=== PATIENT | male | born 1975 ===

== ENCOUNTER 2021-03-02 01:47 | Inpatient (IN) | payer OTHER, SELFPAY ==
--- NOTE | ~2021-03-02 | XR_ITS ---
EXAMINATION: XR abdomen/kub 1V INDICATION: Ileus versus small bowel obstruction TECHNIQUE: Supine views of the abdomen were obtained on 2 radiographs. COMPARISON: CT from yesterday FINDINGS: Small bowel loops in the midabdomen are upper limits of normal in caliber. Gas and stool ar e present in the colon. No free intraperitoneal gas is identified. IMPRESSION: 1. Small bowel upper limits of normal in caliber without dilated bowel identified. Reviewed, dictated and finalized at location A. IMPRESSION: 1. Small bowel upper limits of normal in caliber without dilated bowel identifi ed.
--- NOTE | ~2021-03-02 | CT_ITS ---
EXAMINATION: CT abdomen pelvis w con EXAM DATE: 03/02/2021 04:06 INDICATION: left lower abdominal pain. TECHNIQUE: Spiral CT of the abdomen and pelvis was performed following intravenous injection of 100 m L Omnipaque 350. Axial, coronal and sagittal images of the abdomen and pelvis were reviewed. The do se-length product (DLP) for this examination was 717.25 mGy-cm. The exposure was tailored according to patient size (auto mA exposure control), and iterative reconstruction (ASIR) was used as additiona l dose reduction technique. Comparison is made to prior examination from 01/04/2009. FINDINGS: There is homogeneously enhancing right liver lobe lesion, a flash filling hemangioma which is unchanged compared to prior study, measuring 1.8 cm. There is hepatic steatosis without suspiciou s focal lesion identified. Spleen, adrenal glands, pancreas are unremarkable. Gallbladder is unremar kable. No biliary obstruction. Left kidney not identified, could be congenital given that there is asymmetry in the seminal vesicles with left being atrophic, but correlate with any surgical history. No right-sided hydronephrosis. The prostate is unremarkable. The bladder is unremarkable. There is no retroperitoneal or pelvic lymphadenopathy. There is mild scattered arteriosclerotic disease. Sm all umbilical fat-containing hernia. The appendix is normal. There is mild edema, inflammation of the terminal ileum, nonspecific termina l ileitis with differential diagnosis including infectious etiology and inflammatory bowel disease/Cr ohn's disease. Evidence of mild stasis proximal to this, mild dilation. Only small amount of colonic stool. No free intraperitoneal gas. The heart is normal in size. There are no pericardial or pl eural effusions. The lung bases are unremarkable. There are no osteoblastic or osteolytic lesions i dentified. IMPRESSION: 1. Terminal ileitis, consider infectious etiology or Crohn's disease. Mild ileus or low-grade partial obstruction proximal to this. 2. Flash filling hemangioma. 3. Hepatic steatosis. 4. Absent left kidney. Reviewed, dictated and finalized at location B. IMPRESSION: 1. Terminal ileitis, consider infectious etiology or Crohn's disease. Mild ileu s or low-grade partial obstruction proximal to this. 2. Flash filling hemangioma. 3. Hepatic steatosis. 4. Absent left kidney.
[2021-03-02 01:51] VITALS: BP 138/84; PULSE 75; RESP 18; TEMP 36.7; O2SAT 99
--- NOTE | 2021-03-02 02:16 | ED.ABDPAIN ---
HPI - Abdominal Pain General Chief Complaint: Abdominal Pain Stated Complaint: abd pain Time Seen by Provider: 03/02/21 02:00 Source: patient Mode of arrival: ambulatory Limitations: no limitations History of Present Illness HPI narrative: This is a 45 year old male who presents for evaluation of abdominal pain. Patient developed mid abdominal pain that started at 8 pm tonight. He states his pain would wax and wane and it gradually occurred more frequently through the night. He constantly had urger to have bowel movement tonight with little output. His pain has radiate to left lower abdomen and his left back. He developed nausea and vomiting just prior to arrival so he came to ER. He has not taken anything pain. HE denies dysuria, hematuria, fever or chills. He rates his pain 11/12. Related Data Allergies Allergy/AdvReac Type Severity Reaction Status Date / Time No Known Drug Allergies Allergy Unknown Other Verified 03/02/21 03:05 Review of Systems Review of Systems: All systems reviewed & are unremarkable except as noted in HPI and below PMFSH Past Medical History Medical History (Updated 03/02/21 @ 06:43 by Gill Rao MD) Patient denies medical problems Surgical History Surgical History (Updated 03/02/21 @ 02:17 by Gill Rao MD) History of tonsillectomy Social History Social History (Updated 03/02/21 @ 02:18 by Gill Rao MD) Smoking status: Current every day smoker Alcohol intake: current Exam Const: General: no acute distress and alert Orientation/consciousness: patient oriented x3 Eyes: EOM: EOMs intact bilaterally Resp: Effort & Inspection: normal respiratory effort and no retractions Auscultation: clear to auscultation bilaterally Cardio: Rate: regular rate Rhythm: regular rhythm Heart sounds: no murmurs GI: GI Palp: Yes Soft to palpation, Yes Tenderness to palpation present (GI) (LLQ), No Guarding due to palpation present (GI) and No Rigid due to palpation Auscultation: normal bowel sounds : General: Yes CVA tenderness on the left Skin: General skin exam: normal color Rashes: no rashes Neuro: General: patient oriented x3, moves all extremities and CN's II-XI intact bilaterally Psych: Mental Status: mental status grossly normal Affect: normal affect Course Reevaluation(s) Reevaluation #1: I Discussed with patient CT findings. HE denies history of diarrhea or inflammatory bowel disease. He reports he normally has normal bowel movements. I Spoke with Dr. Morfin who agrees to consult. Date: 03/02/21 Time: 06:30 Consultations Consultation #1: I spoke with Dr. Martinez who accepts patient to hospitalist service. she request surgery consult. Date: 03/02/21 Time: 06:42 Consultation #2: I Discussed case with DR. Mckenna. HE agrees patient needs GI consults. Date: 03/02/21 Time: 06:53 Vital Signs Vital signs: Vital Signs Temperature 98.0 F 03/02/21 01:51 Pulse Rate 75 03/02/21 01:51 Respiratory Rate 18 03/02/21 01:51 Blood Pressure 138/84 03/02/21 01:51 Pulse Oximetry 99 03/02/21 01:51 Temperature 98.1 F 03/02/21 05:28 Pulse Rate 81 03/02/21 05:28 Respiratory Rate 18 03/02/21 05:28 Blood Pressure 141/71 H 03/02/21 05:28 Pulse Oximetry 100 03/02/21 05:28 MDM - Abdominal Pain Lab Data Attestation: I reviewed the patient's lab results. Result diagrams: 03/02/21 02:24 03/02/21 03:08 Labs: Lab Results 03/02/21 03/02/21 03/02/21 Range/Units 02:24 02:25 03:08 WBC 15.1 H (4.5-10.0) K/mm3 RBC 5.36 (4.6-6.20) M/mm3 Hgb 17.3 (14.0-18.0) g/dL Hct 49.6 (42.0-52.0) % MCV 92.5 (80-100) fl MCH 32.3 (26-34) pg MCHC 34.9 (32-36) g/dl RDW 12.4 (11.5-14.5) % Plt Count 322 (150-375) k/mm3 MPV 10.1 (7.4-10.4) fl Immature Gran % (Auto) 0.4 (0-0.5) % Neut % (Auto) 82.3 H (45.5-73.1) % Lymph % (Auto) 11.6 L (18.3
[2021-03-02] MEDS: ONDANSETRON INJ 4 MG/2 ML VIAL IV PUSH (02:22)
[2021-03-02] MEDS: MORPHINE SULFATE (*CRX) 4 MG/ML INJ IV PUSH (02:22)
[2021-03-02] MEDS: SODIUM CHLORIDE 0.9% IV 1,000 ML 999 ML IV CONT (02:23)
[2021-03-02 02:35] LABS: Basophils Absolute Auto 0.1 K/mm3 (0.0-0.1); Basophils Percent Auto 0.3 % (0.2-1.2); Eosinophils Percent Auto 0.1 % (0-4.4); Hematocrit 49.6 % (42.0-52.0); Hemoglobin 17.3 g/dL (14.0-18.0); Immature Granulocyte Absolute 0.06 K/mm3 (0.00-0.031); Immature Granulocyte Percent A 0.4 % (0-0.5); Lymphocytes Absolute Auto 1.75 K/mm3 (0.9-3.2); Lymphocytes Percent Auto 11.6 % (18.3-44.2); Mean Corpuscular HGB Conc 34.9 g/dl (32-36); Mean Corpuscular Hemoglobin 32.3 pg (26-34); Mean Corpuscular Volume 92.5 fl (80-100); Mean Platelet Volume 10.1 fl (7.4-10.4); Monocytes Absolute Auto 0.8 K/mm3 (0.1-0.6); Monocytes Percent Auto 5.3 % (2.6-8.5); Neutrophils Absolute Auto 12.5 K/mm3 (1.3-6.7); Neutrophils Percent Auto 82.3 % (45.5-73.1); Platelet Count Result 322 k/mm3 (150-375); Red Blood Count 5.36 M/mm3 (4.6-6.20); Red Cell Distribution Width 12.4 % (11.5-14.5); White Blood Count 15.1 K/mm3 (4.5-10.0)
[2021-03-02 03:18] LABS: Add Urine Microscopic? YES; Appearance Urine Cloudy (Clear); Bilirubin Urine Negative (Negative); Blood Urine Negative (Negative); Calcium Oxalate Crystals Urine Present /hpf; Color Urine Yellow (Yellow); Glucose Urine UA Negative (Negative); Ketones Urine Negative (Negative); Leukocyte Esterase Ur Negative LEU/UL (Negative); Mucus Urine Rare /lpf; Nitrate Urine Negative (Negative); Protein Urine 2+ mg/dL (Negative); WBC Urine 0-3 /hpf
[2021-03-02 03:50] LABS: Alanine Aminotransferase 34 U/L (4-50); Albumin Level 3.8 g/dL (3.5-5.1); Alkaline Phosphatase 57 U/L (38-126); Anion Gap 6 mmol/L (8-16); Aspartate Amino Transferase 24 U/L (17-59); Bilirubin,Total 0.6 mg/dL (0.2-1.3); Blood Urea Nitrogen 19 mg/dL (9-20); Calcium 8.6 mg/dL (8.4-10.2); Carbon Dioxide 25 mmol/L (22-30); Chloride 107 mmol/L (98-107); Estimated CRCL calculation 105 ml/min; Estimated Glomerular Filt Rate > 60; Glucose 129 mg/dL (65-110); Lipase 299 U/L (23-300); Potassium 4.4 mmol/L (3.4-5.0); Sodium 138 mmol/L (137-145)
[2021-03-02 05:28] VITALS: BP 141/71; PULSE 81; RESP 18; TEMP 36.7; O2SAT 100
[2021-03-02 06:54] VITALS: BP 100/59; PULSE 81; RESP 18; O2SAT 100
[2021-03-02 07:46] VITALS: BMI 27.8
[2021-03-02 08:33] VITALS: BP 103/61; PULSE 65; RESP 18; TEMP 36.1; O2SAT 97
--- NOTE | 2021-03-02 08:37 | ADMGEN ---
This patient, Pratik Duque, was admitted to 3 [facility] Surg Room 316-01. Patient/family oriented to hospital policies and general routines including ID bracelet, bed and alarms, visiting hours, pain management, procedures, bathroom and other care routines, personal items, smoking policy, room service/diet, and visiting hours. Pt has his phone and wallet at bedside. He will keep it with him. Information on how to activate the Rapid Response Team has been discussed. Patient/Family are encouraged to report perceived risks to care and to ask questions if they do not understand what they are told or what they should do.
[2021-03-02] MEDS: SODIUM CHLORIDE 0.9% IV 1,000 ML 125 ML IV CONT ×2 (10:07→18:48)
--- NOTE | 2021-03-02 12:35 | PM.CNGS ---
Assessment and Plan Assessment and plan (1) Partial small bowel obstruction: Code(s): K56.600 - Partial intestinal obstruction, unspecified as to cause Status: Acute Assessment and Plan: CT scan reviewed and discussed in detail with the patient. He had evidence of a partial small bowel obstruction secondary to the terminal ileitis. This seems to be resolving. Abdominal exam is benign. No longer having any abdominal pain or nausea. Continue treating this conservatively with medical management of the terminal ileitis and monitoring. Okay to start clear liquids today from our standpoint. Await GI consultation. If he does well, his diet could slowly be advanced. We will continue to monitor with serial abdominal exams. Thank you for allowing us to see the patient in consultation and we will continue to follow along with you. (2) Ileitis, terminal: Code(s): K50.00 - Crohn's disease of small intestine without complications Status: Acute Assessment and Plan: Terminal ileitis from infectious or inflammatory etiology. No known hx of IBD. GI has been consulted. Currently on broad-spectrum IV antibiotics. WBC 15,000 on admission. Repeat labs tomorrow. Will await GI recommendations. (3) Congenital absence of left kidney: Code(s): Q60.0 - Renal agenesis, unilateral Status: Acute (4) Hepatic steatosis: Code(s): K76.0 - Fatty (change of) liver, not elsewhere classified Status: Acute Assessment and Plan: Incidentally noted on CT. Discussed with patient. F/u with PCP after discharge. Additional Plan I have discussed the patient's case and plan of care with Dr. Mckenna. History of Present Illness Consult details Consult date: 03/02/21 Reason for consult: other (Partial small bowel obstruction) Requesting physician: Gill Rao MD Narrative: This is a 45-year-old male who presented to the ER with complaints of abdominal pain and vomiting. He reports that he had a very large quantity of almonds yesterday afternoon around 3:00 pm after not eating any meals all day. Later in the evening, he ate dinner, which was a pork chop and potatoes around 8:00 pm. Shortly after eating dinner, he began to have generalized abdominal pain. This continued to gradually worsen. He then developed nausea and had multiple episodes of vomiting. No hematemesis or coffee-ground emesis. He reports that his bowel also changed, when he had a normal BM in the morning and when the pain started, he had a few very small liquid stools. Due to the unrelenting pain and vomiting, he came into the ER through the night for evaluation. CT scand of the abdomen/pelvis showed terminal ileitis with a partial small bowel obstruction. Incidentally noted also was an absent left kidney, hepatic steatosis, and likely a hemangioma on the right lobe of the liver. He reports that his absent left kidney is congenital. The patient was admitted to the Hospitalist service. We were consulted for the partial small bowel obstruction. He did not have an NG tube placed. His nausea has resolved with no further episodes of vomiting since being admitted. He is now seen on the medical floor. He feels much better with all of his symptoms resolved. He denies any abdominal pain, nausea, or vomiting. No other complaints at this time. He denies previous abdominal surgery. Denies a personal or family history of inflammatory bowel disease. No recent weight loss or changes in his bowel habits. No recent diarrhea, fever, or chills. No close contacts with similar symptoms. He had a colonoscopy about 10 years ago that was reportedly normal. This was done due to having a family history of colon cancer. Review of Systems Review of Systems: All systems reviewed & are unremarkable except as noted in HPI and below Constitutional: Constitutional: Reports as per HPI, Denies chills, Denies fatigue and Denies fever(s) ENT: Reports system reviewed and no additional complaints, exce
[2021-03-02 14:00] VITALS: BP 109/54; PULSE 73; RESP 14; TEMP 36.2; O2SAT 97
--- NOTE | 2021-03-02 14:11 | PM.IMHP ---
H&P: HPI History of Present Illness Date/Time: 03/02/21 14:11 Chief Complaint: abdominal pain Narrative: Patient is a 45-year-old gentleman with no significant past medical history presenting with abdominal pain since yesterday. Around 8:00 p.m. last night, he started feeling an acute onset pain in the low left side, in the middle of his abdomen. Gates like twisting, and lasted for several hours until he came to the hospital. Over this course, he had couple loose bowel movements, and a few episodes of vomiting, bilious fluid. No blood in vomit or stool. Never happened to him before. No fevers or chills. Nobody around him had the symptoms. Past medical history: No chronic medical problems Allergies: Not aware of any allergies Medications: None daily Family history: Father had leukemia, sister had colon cancer diagnosed at age 44 Social history: No drugs alcohol or tobacco Surgeries: No major surgeries ER course: Vitals: Unremarkable new Labs: White blood cells 15, UA negative CT: Showing terminal ileitis, flash filling hemangioma, hepatic steatosis, absent left kidney General surgery and GI service consulted from the emergency room Review of Systems Review of Systems: All systems reviewed & are unremarkable except as noted in HPI and below PMFSH Past Medical History Medical History Congenital absence of left kidney Surgical History Surgical History History of tonsillectomy Family History Family History Sibling Colon cancer Father Leukemia Social History Social History Smoking status: Current every day smoker Tobacco type: e-cigarettes/vaping Alcohol intake: current Drinks per week: 5 Substance use: never Spiritual care concerns: No Meds Home Medications and Allergies Home Medications Medication Instructions Recorded Confirmed Type No Home Medications 03/02/21 03/02/21 History Allergies Allergy/AdvReac Type Severity Reaction Status Date / Time No Known Drug Allergies Allergy Unknown Other Verified 03/02/21 03:05 Vital Signs Vital Signs - 24 hr 03/02/21 01:51 03/02/21 05:28 03/02/21 06:54 Temperature 98.0 F 98.1 F Pulse Rate 75 81 81 Respiratory Rate 18 18 18 Blood Pressure 138/84 141/71 H 100/59 L Pulse Oximetry 99 100 100 03/02/21 08:33 03/02/21 14:00 Temperature 97.0 F L 97.1 F L Pulse Rate 65 73 Respiratory Rate 18 14 Blood Pressure 103/61 109/54 L Pulse Oximetry 97 97 Exam Const: General: no acute distress Neck: Neck: no JVD Resp: Effort & Inspection: normal respiratory effort Auscultation: clear to auscultation bilaterally Cardio: Rate: regular rate Rhythm: regular rhythm GI: GI Palp: Yes Soft to palpation and No Tenderness to palpation present (GI) H&P: Results Labs Labs: Short CBC 03/02/21 Range/Units 02:24 WBC 15.1 H (4.5-10.0) K/mm3 Hgb 17.3 (14.0-18.0) g/dL Hct 49.6 (42.0-52.0) % Plt Count 322 (150-375) k/mm3 BMP 03/02/21 03:08 Sodium 138 Potassium 4.4 Chloride 107 Carbon Dioxide 25 BUN 19 Creatinine 1.00 Glucose 129 H Calcium 8.6 Liver Function 03/02/21 Range/Units 03:08 Total Bilirubin 0.6 (0.2-1.3) mg/dL AST 24 (17-59) U/L ALT 34 (4-50) U/L Alkaline Phosphatase 57 (38-126) U/L Albumin 3.8 (3.5-5.1) g/dL Urine 03/02/21 Range/Units 02:25 Urine Color Yellow (Yellow) Urine Appearance Cloudy H (Clear) Urine pH 6.0 (5.0-9.0) Ur Specific [place] 1.030 (1.001-1.035) Urine Protein 2+ H (Negative) mg/dL Urine Glucose (UA) Negative (Negative) mg/dL Assessment and Plan Assessment and plan (1) Ileitis, terminal: Code(s): K50.00 - Crohn's disease of small intestine without complications
--- NOTE | 2021-03-02 14:27 | PC.NURSE ---
On 03/02/21, the student, Reema GARCIA [facility], provided care and completed [employer] documentation on this patient. I have reviewed the student's documentation and agree with the findings.
--- NOTE | 2021-03-02 17:35 | WPDGICN ---
Assessment and Plan Assessment and plan (1) Ileitis, terminal: Code(s): K50.00 - Crohn's disease of small intestine without complications Status: Acute Assessment and Plan: new episode, denies previous similar episodes, normally does not have diarrhea or abdominal pain last colonoscopy 2008 normal and for family h/o CRC will do colonoscopy tomorrow, probably infectious or food poising but also need to assess if IBD (denies chronic symptoms though) he is doing much better now will get inflammatory markers in am (2) Partial small bowel obstruction: Code(s): K56.600 - Partial intestinal obstruction, unspecified as to cause Status: Acute Assessment and Plan: clinically much better surgery on board (3) Nausea and vomiting in adult: Code(s): R11.2 - Nausea with vomiting, unspecified Status: Acute Assessment and Plan: resolved (4) Congenital absence of left kidney: Code(s): Q60.0 - Renal agenesis, unilateral Status: Acute (5) Hepatic steatosis: Code(s): K76.0 - Fatty (change of) liver, not elsewhere classified Status: Acute (6) Leukocytosis: Code(s): D72.829 - Elevated white blood cell count, unspecified Status: Acute Assessment and Plan: on admission, started on antibiotics repeat in am GI Consult Note Consult date/time: 03/02/21 17:35 Reason for consult: n/v, possible ileitis, partial SBO HPI: Pratik Duque is a 45 year old male here with new onset of pain after he ate large quantity of almonds yesterday afternoon (he did not drink water and skip meals). Pain worsened last evening and more severe, also had nausea and vomiting, also had small amount of liquid stools which is unusual for him. CT scan of the abdomen/pelvis reviewed and showed terminal ileitis with a partial small bowel obstruction. Incidentally noted also was an absent left kidney, hepatic steatosis, and likely a hemangioma on the right lobe of the liver. He reports that his absent left kidney is congenital. Since admission his pain is resolved and doing much better, tolerated liquid diet. He had colonoscopy 2008 that was normal because sister had colon cancer. Review of Systems Constitutional: Constitutional: Denies chills Eyes: Eyes: Reports no additional eye complaints ENT: Reports Normal hearing present Cardiovascular: Cardiovascular: Denies chest pain Respiratory: Respiratory: Denies dyspnea Gastrointestinal: Gastrointestinal: Reports abdominal pain, Reports nausea and Reports vomiting Genitourinary: Genitourinary: Denies dysuria Musculoskeletal: Musculoskeletal: Denies neck pain Integumentary/Breasts: Skin/Breast: Denies dry skin Neurologic: Denies headache(s) Psychiatric: Psychiatric: Reports no additional psychiatric complaints [facility] Past Medical History Medical History (Updated 03/02/21 @ 17:43 by Herb Morfin MD) Congenital absence of left kidney Leukocytosis Nausea and vomiting in adult Surgical History Surgical History History of tonsillectomy Family History Family History Sibling Colon cancer Father Leukemia Social History Social History Smoking status: Current every day smoker Tobacco type: e-cigarettes/vaping Alcohol intake: current Drinks per week: 5 Substance use: never Spiritual care concerns: No Meds Home Medications and Allergies Home Medications Medication Instructions Recorded Confirmed Type No Home Medications 03/02/21 03/02/21 History Allergies Allergy/AdvReac Type Severity Reaction Status Date / Time No Known Drug Allergies Allergy Unknown Other Verified 03/02/21 03:05 Vital Signs Vital Signs - 24 hr 03/02/21 01:51 03/02/21 05:28 03/02/21 06:54 Temperature 98.0 F 98.1 F Pulse Rate 7
[2021-03-02] MEDS: BISACODYL 5 MG TABLET EC 20 MG PO (18:22)
[2021-03-02 22:00] VITALS: BP 104/63; PULSE 75; RESP 18; TEMP 35.9; O2SAT 100
[2021-03-02] MEDS: polyethylene glycoL 3350 238 GM BOTTLE PO (23:23)
[2021-03-03] VITALS (8 sets, daily range): BP systolic 92–112; BP diastolic 46–70; PULSE 66–84; RESP 14–19; TEMP 35.8–36.6; O2SAT 95–100
[2021-03-03] MEDS: SODIUM CHLORIDE 0.9% IV 1,000 ML 125 ML IV CONT ×2 (03:45→11:18)
[2021-03-03] MEDS: MAGNESIUM CITRATE 300 ML BTL PO (03:45)
[2021-03-03 06:29] LABS: Basophils Percent Auto 0.4 % (0.2-1.2); Eosinophils Absolute Auto 0.1 K/mm3 (0-0.3); Eosinophils Percent Auto 1.4 % (0-4.4); Hematocrit 44.5 % (42.0-52.0); Hemoglobin 15.3 g/dL (14.0-18.0); Immature Granulocyte Absolute 0.02 K/mm3 (0.00-0.031); Immature Granulocyte Percent A 0.3 % (0-0.5); Lymphocytes Absolute Auto 2.55 K/mm3 (0.9-3.2); Lymphocytes Percent Auto 34.6 % (18.3-44.2); Mean Corpuscular HGB Conc 34.4 g/dl (32-36); Mean Corpuscular Hemoglobin 32.4 pg (26-34); Mean Corpuscular Volume 94.3 fl (80-100); Mean Platelet Volume 9.8 fl (7.4-10.4); Monocytes Absolute Auto 0.6 K/mm3 (0.1-0.6); Neutrophils Absolute Auto 4.1 K/mm3 (1.3-6.7); Neutrophils Percent Auto 55.3 % (45.5-73.1); Platelet Count Result 240 k/mm3 (150-375); Red Blood Count 4.72 M/mm3 (4.6-6.20); Red Cell Distribution Width 12.4 % (11.5-14.5); White Blood Count 7.4 K/mm3 (4.5-10.0)
[2021-03-03 07:01] LABS: Alanine Aminotransferase 29 U/L (4-50); Albumin Level 3.6 g/dL (3.5-5.1); Alkaline Phosphatase 52 U/L (38-126); Anion Gap 10 mmol/L (8-16); Aspartate Amino Transferase 21 U/L (17-59); Bilirubin,Total 0.7 mg/dL (0.2-1.3); Blood Urea Nitrogen 8 mg/dL (9-20); CRP < 0.5 mg/dL (<1.0); Calcium 8.5 mg/dL (8.4-10.2); Carbon Dioxide 19 mmol/L (22-30); Chloride 111 mmol/L (98-107); Estimated CRCL calculation 90 ml/min; Estimated Glomerular Filt Rate > 60; Glucose 107 mg/dL (65-110); Magnesium 2.1 mg/dL (1.6-2.3); Phosphorus 3.6 mg/dL (2.5-4.5); Sodium 140 mmol/L (137-145)
[2021-03-03 07:05] LABS: Erythrocyte Sedimentation Rate 6 mm/hr (0-20)
[2021-03-03 07:20] LABS: Hemoglobin A1C 5.4 % (<5.7)
--- NOTE | 2021-03-03 08:32 | PM.IMPN ---
Progress Note: A&P Assessment and Plan (1) Ileitis, terminal: Code(s): K50.00 - Crohn's disease of small intestine without complications Status: Acute (2) Hepatic steatosis: Code(s): K76.0 - Fatty (change of) liver, not elsewhere classified Status: Acute Assessment and Plan: Patient is not an alcoholic, or obese will obtain A1c with morning labs (3) Congenital absence of left kidney: Code(s): Q60.0 - Renal agenesis, unilateral Status: Acute Assessment and Plan: discovered many years ago, congenital condition. (4) Partial small bowel obstruction: Code(s): K56.600 - Partial intestinal obstruction, unspecified as to cause Status: Acute Assessment and Plan: Seen by surgery, recommend conservative management, start with cold liquids and slowly advance diet (5) Hemangioma: Code(s): D18.00 - Hemangioma unspecified site Status: Acute Assessment and Plan: Patient was told many years ago that he had this, was followed with an MRI, and believed to be non growing. Will defer to GI, however less likely that this is associated with his current symptoms. Additional Plan 45-year-old male with acute onset left-sided abdominal pain for 1 day. Ileitis: Unclear etiology, some concern for IBD, GI is on consult. Discussed possibility of other etiologies, including celiac, appreciate additional GI input. Continue with Morphine pain control is seems to be working for him, and IV fluids. some concern for partial bowel obstruction on CT, however patient is continuing to have bowel movements and seen by GI, recommending conservative medical management, and starting clear liquid diets an advancing slowly which we will do. noted the patient is on Zosyn, we will continue, and can stop based on GI recommendation. Based on their evaluation, plan for colonoscopy today. Of note he had a sister who had colon cancer diagnosed at age 44, however he has no other symptoms at this, and no weight loss. Time Spent With Patient Time with patient: less than 15 minutes Subjective Date/time seen: 03/03/21 08:32 abdominal pain controlled resting comfortably in bed Review of Systems Review of Systems: All systems reviewed & are unremarkable except as noted in HPI and below Exam Const: General: no acute distress Neck: Neck: no JVD Resp: Effort & Inspection: normal respiratory effort Auscultation: clear to auscultation bilaterally Cardio: Rate: regular rate Rhythm: regular rhythm GI: Inspection: non-distended Objective Data Vital Signs Vital Signs: Vital Signs - 24 hr 03/02/21 08:33 03/02/21 14:00 03/02/21 22:00 Temperature 97.0 F L 97.1 F L 96.7 F L Pulse Rate 65 73 75 Respiratory Rate 18 14 18 Blood Pressure 103/61 109/54 L 104/63 Pulse Oximetry 97 97 100 03/03/21 06:00 Temperature 97.4 F L Pulse Rate 66 Respiratory Rate 18 Blood Pressure 92/46 L Pulse Oximetry 99 Intake/Output Intake/Output: Intake & Output 02/28/21 03/01/21 03/02/21 03/03/21 23:59 23:59 23:59 23:59 Intake Total 3450 2700 Balance 3450 2700 Meds/Results Medications: Active Medications Generic Name Dose Route Start Last Admin Trade Name Freq PRN Reason Stop Dose Admin Piperacillin/Tazobactam/Dextrose 3.375 gm in 50 mls @ 100 mls/hr 03/02/21 12:00 03/03/21 06:24 Zosyn 3.375 Gm/D5w 50ml Pm IVPB Infused Q6H BRUCE Infusion Sodium Chloride 1,000 mls @ 125 mls/hr 03/02/21 06:55 03/03/21 03:45 Normal Saline Iv IV CONT 125 mls/hr .Q8H BRUCE Administration Morphine Sulfate 4 mg 03/02/21 06:55 Morphine Sulfate (*Crx) 4 Mg/Ml Inj IV PUSH Q2H PRN Pain Rated 7-10 Ondansetron HCl 4 mg 03/02/21 06:55 Ondansetron Inj 4 Mg/2 Ml Vial IV PUSH Q4H PRN Nausea Radiology Results: ITS Impressions Abdomen/Pelvis CT 03/02/21 08:50 IMPRESSION: 1. Terminal ileitis, consider infectious etiology or Crohn's dise
[2021-03-03] MEDS: LACTATED RINGERS 1,000 ML 150 ML IV CONT ×2 (11:44→13:10)
[2021-03-03] MEDS: LACTATED RINGERS 1,000 ML 999 ML IV CONT (11:45)
--- NOTE | 2021-03-03 12:24 | PM.PNGS ---
Progress Note: A&P Assessment and Plan (1) Ileitis, terminal: Code(s): K50.00 - Crohn's disease of small intestine without complications Status: Acute Assessment and Plan: Bowel obstruction appears resolved. Will await colonoscopy results, but most likely this will be able to be medically managed. Will follow patient as needed. (2) Partial small bowel obstruction: Code(s): K56.600 - Partial intestinal obstruction, unspecified as to cause Status: Acute Subjective Subjective Date/Time Seen: 03/03/21 12:24 Interval history: Patient doing well this morning. He denies any more abdominal pain. He was able to tolerate his bowel prep last night. He is currently NPO waiting for colonoscopy today. Exam GI: Inspection: non-distended GI Palp: Yes Soft to palpation, No Tenderness to palpation present (GI), No Guarding due to palpation present (GI), No Palpable mass present and No Rebound tenderness present Percussion: Yes normal to percussion Auscultation: normal bowel sounds Objective Data Vital Signs Vital Signs: Vital Signs - 24 hr 03/02/21 14:00 03/02/21 22:00 03/03/21 06:00 Temperature 36.2 C L 35.9 C L 36.3 C L Pulse Rate 73 75 66 Respiratory Rate 14 18 18 Blood Pressure 109/54 L 104/63 92/46 L Pulse Oximetry 97 100 99 03/03/21 08:00 Temperature Pulse Rate 66 Respiratory Rate 18 Blood Pressure Pulse Oximetry 99 Intake/Output Intake/Output: Intake & Output 02/28/21 03/01/21 03/02/21 03/03/21 23:59 23:59 23:59 23:59 Intake Total 3450 3700 Balance 3450 3700 Meds/Results Medications: Active Medications Generic Name Dose Route Start Last Admin Trade Name Freq PRN Reason Stop Dose Admin Piperacillin/Tazobactam/Dextrose 3.375 gm in 50 mls @ 100 mls/hr 03/02/21 12:00 03/03/21 11:17 Zosyn 3.375 Gm/D5w 50ml Pm IVPB 100 mls/hr Q6H BRUCE Administration Sodium Chloride 1,000 mls @ 125 mls/hr 03/02/21 06:55 03/03/21 11:18 Normal Saline Iv IV CONT 125 mls/hr .Q8H BRUCE Administration Lactated Ringer's 1,000 mls @ 999 mls/hr 03/03/21 11:41 03/03/21 11:45 Lr - Lactated Ringers Iv IV CONT 03/03/21 12:41 999 mls/hr .Q1H1M STA Administration Lactated Ringer's 1,000 mls @ 150 mls/hr 03/03/21 12:05 Lr - Lactated Ringers Iv IV CONT .Q6H40M BRUCE Morphine Sulfate 4 mg 03/02/21 06:55 Morphine Sulfate (*Crx) 4 Mg/Ml Inj IV PUSH Q2H PRN Pain Rated 7-10 Ondansetron HCl 4 mg 03/02/21 06:55 Ondansetron Inj 4 Mg/2 Ml Vial IV PUSH Q4H PRN Nausea Radiology Results: ITS Impressions Abdomen/Pelvis CT 03/02/21 08:50 IMPRESSION: 1. Terminal ileitis, consider infectious etiology or Crohn's disease. Mild ileus or low-grade partial obstruction proximal to this. 2. Flash filling hemangioma. 3. Hepatic steatosis. 4. Absent left kidney. Abdomen X-Ray 03/03/21 07:06 IMPRESSION: 1. Small bowel upper limits of normal in caliber without dilated bowel identified. Labs Labs: Laboratory Results - last 24 hr 03/03/21 03/03/21 03/03/21 06:10 06:11 06:11 WBC 7.4 RBC 4.72 Hgb 15.3 Hct 44.5 MCV 94.3 MCH 32.4 MCHC 34.4 RDW 12.4 Plt Count 240 MPV 9.8 Immature Gran % (Auto) 0.3 Neut % (Auto) 55.3 Lymph % (Auto) 34.6 [place] % (Auto) 8.0 Eos % (Auto) 1.4 Baso % (Auto) 0.4 Lymph # (Auto) 2.55 [place] # (Auto) 0.6 Eos # (Auto) 0.1 Baso # (Auto) 0.0 Abs Immat Gran (auto) 0.02 Absolute Neuts (auto) 4.1 Absolute Nucleated RBC 0.0 Nucleated RBC % 0.0 ESR 6 Sodium 140 Potassium 4.0 Chloride 111 H Carbon Dioxide 19 L Anion Gap 10 BUN 8 L D Creatinine 1.00 Estim Creat Clear Calc 90 Estimated GFR > 60 Glucose 107 Hemoglobin A1c 5.4 Calcium 8.5 Phosphorus 3.6 Magnesium 2.1 Total Bilirubin 0.7 AST 21 ALT 29 Alkaline Phosphatase 52 C-Reactive Protein < 0.5 Total Protei
--- NOTE | 2021-03-03 12:45 | PC.NURSE ---
Report given to Gl lab Nanci picked up pt for colonoscopy this afternoon.
--- NOTE | 2021-03-03 12:55 | WPDANESEPPF ---
Anes - Initial Pre Proc Eval Procedure: Operation Date: 03/03/21 13:45 Proposed Procedures p Colonoscopy - Herb Morfin MD Date/Time: 03/03/21 12:55 Surgeon: Florence Matrinez MD Pre Op Diagnosis: Terminal Ileitis, Partial Small Bowel Obstruction Patient Data Age: 45 Gender: M Height: 1.83 m Weight: 93 kg Last Vital Signs Temp 36.3 C L 03/03/21 06:00 Pulse 66 03/03/21 08:00 Resp 18 03/03/21 08:00 BP 92/46 L 03/03/21 06:00 Pulse Ox 99 03/03/21 08:00 Allergies Allergy/AdvReac Type Severity Reaction Status Date / Time No Known Drug Allergies Allergy Unknown Other Verified 03/03/21 12:53 Home Medications Medication Instructions Recorded Confirmed Type No Home Medications 03/02/21 03/03/21 History Laboratory Tests 03/03/21 03/03/21 03/03/21 06:10 06:11 06:11 WBC 7.4 K/mm3 K/mm3 (4.5-10.0) RBC 4.72 M/mm3 M/mm3 (4.6-6.20) Hgb 15.3 g/dL g/dL (14.0-18.0) Hct 44.5 % % (42.0-52.0) MCV 94.3 fl fl (80-100) MCH 32.4 pg pg (26-34) MCHC 34.4 g/dl g/dl (32-36) RDW 12.4 % % (11.5-14.5) Plt Count 240 k/mm3 k/mm3 (150-375) MPV 9.8 fl fl (7.4-10.4) Immature Gran % (Auto) 0.3 % % (0-0.5) Neut % (Auto) 55.3 % % (45.5-73.1) Lymph % (Auto) 34.6 % % (18.3-44.2) [place] % (Auto) 8.0 % % (2.6-8.5) Eos % (Auto) 1.4 % % (0-4.4) Baso % (Auto) 0.4 % % (0.2-1.2) Lymph # (Auto) 2.55 K/mm3 K/mm3 (0.9-3.2) [place] # (Auto) 0.6 K/mm3 K/mm3 (0.1-0.6) Eos # (Auto) 0.1 K/mm3 K/mm3 (0-0.3) Baso # (Auto) 0.0 K/mm3 K/mm3 (0.0-0.1) Abs Immat Gran (auto) 0.02 K/mm3 K/mm3 (0.00-0.031) Absolute Neuts (auto) 4.1 K/mm3 K/mm3 (1.3-6.7) Absolute Nucleated RBC 0.0 K/mm3 K/mm3 (0.0-0.012) Nucleated RBC % 0.0 % % (0.0-0.2) ESR 6 mm/hr mm/hr (0-20) Sodium 140 mmol/L mmol/L (137-145) Potassium 4.0 mmol/L mmol/L (3.4-5.0) Chloride 111 mmol/L H mmol/L (98-107) Carbon Dioxide 19 mmol/L L mmol/L (22-30) Anion Gap 10 mmol/L mmol/L (8-16) BUN 8 mg/dL L D mg/dL (9-20) Creatinine 1.00 mg/dL mg/dL (0.7-1.3) Estim Creat Clear Calc 90 ml/min ml/min Estimated GFR > 60 (59 - ) Glucose 107 mg/dL mg/dL (65-110) Hemoglobin A1c 5.4 % % (<5.7) Calcium 8.5 mg/dL mg/dL (8.4-10.2) Phosphorus 3.6 mg/dL mg/dL (2.5-4.5) Magnesium 2.1 mg/dL mg/dL (1.6-2.3) Total Bilirubin 0.7 mg/dL mg/dL (0.2-1.3) AST 21 U/L U/L (17-59) ALT 29 U/L U/L (4-50) Alkaline Phosphatase 52 U/L U/L (38-126) C-Reactive Protein < 0.5 mg/dL mg/dL (<1.0) Total Protein 6.0 g/dL L g/dL (6.3-8.2) Albumin 3.6 g/dL g/dL (3.5-5.1) Patient hx anesthesia problems: none Family hx anesthesia problems: none Results Review: All pre-operative results and documents have been reviewed as part of the pre-operative evaluation. [facility] Past Medical History Medical History Congenital absence of left kidney Leukocytosis Nausea and vomiting in adult Surgical History Surgical History History of tonsillectomy Family History Family History Sibling Colon cancer Father Leukemia Social History Social History Smoking status: Current every day smoker Tobacco type: e-cigarettes/vaping Alcohol intake: current Drinks per week: 5 Substance use: never Spiritual care concerns: No Anes - Eval Final PreProcedure Day of Proced
--- NOTE | 2021-03-03 15:15 | PM.DS ---
DS: Admitting Diagnosis Discharge Date March 03, 2021 Admitting Diagnosis abdominal pain DS: Discharge Diagnosis Discharge Diagnosis (1) Hepatic steatosis: Code(s): K76.0 - Fatty (change of) liver, not elsewhere classified Status: Acute (2) Hemangioma: Code(s): D18.00 - Hemangioma unspecified site Status: Acute (3) Partial small bowel obstruction: Code(s): K56.600 - Partial intestinal obstruction, unspecified as to cause Status: Acute (4) Gastroenteritis: Code(s): K52.9 - Noninfective gastroenteritis and colitis, unspecified Status: Acute DS: Summary Hospital Course Reason for hospitalization: abdominal pain Hospital Course: patient is a 45-year-old man with no significant chronic medical problems, but family history of colon cancer in his 44-year-old sister, presenting with approximately 1 day of acute onset left lower sided abdominal pain. This was associated with vomiting. Lipase was normal, did not have transaminitis, urinalysis not indicative of infection. CT was obtained, which showed some concerning findings including hepatic steatosis, flash filling hemangioma, and concern for terminal ileitis. There was also some concern for partial small-bowel obstruction. General surgery was consulted for the small-bowel obstruction, however noted that the patient has having bowel movements, and decided conservative medical management, on subsequent review believe that obstruction has resolved. Hepatic steatosis is previously unknown to the patient, advised that he should discuss this with primary care, and would benefit from lifestyle modifications, including alcohol cessation. no liver enzyme elevation, and pain on the left lower side, not right upper side, and therefore this is unlikely to be related to present presentation. Flash filling hemangioma was seen on imaging, however says that has been told he has this many years ago, and was told that it was not progressing, and therefore would be kept under observation. Discussed with primary care regarding surveillance. Terminal ileitis was a concern, as may represent some underlying condition, however inflammatory bowel disease less likely as never been diagnosed in an older gentleman, age 45. GI was consulted, evaluated the patient, colonoscopy performed, ileitis not evident, cancer not evident, advised for outpatient follow-up primary care. Also devised the patient is likely suffering from gastroenteritis, and this is the most likely explanation of his symptoms. Advised to have close follow-up primary care, return to the hospital if pain returns worsens. Slowly advance diet this evening. Status at Discharge Functional status at discharge: independent ambulation Overall status at discharge: patient is progressing back to baseline Time Spent with Patient Time attestation: Total time spent providing and/or coordinating discharge services: Time spent: Less than 30 minutes Exam Const: General: no acute distress Neck: Neck: no JVD Resp: Effort & Inspection: normal respiratory effort Auscultation: clear to auscultation bilaterally Cardio: Rate: regular rate Rhythm: regular rhythm GI: GI Palp: Yes Soft to palpation and No Tenderness to palpation present (GI) DS: Data Data Completed and Pending Labs on day of discharge: Labs from last 24 hours 03/03/21 03/03/21 03/03/21 06:11 06:11 06:10 WBC 7.4 RBC 4.72 Hgb 15.3 Hct 44.5 MCV 94.3 MCH 32.4 MCHC 34.4 RDW 12.4 Plt Count 240 MPV 9.8 Immature Gran % (Auto) 0.3 Neut % (Auto) 55.3 Lymph % (Auto) 34.6 [place] % (Auto) 8.0 Eos % (Auto) 1.4 Baso % (Auto) 0.4 Lymph # (Auto) 2.55 [place] # (Auto) 0.6 Eos # (Auto) 0.1 Baso # (Auto) 0.0 Abs Immat Gran (auto) 0.02 Absolute Neuts (auto) 4.1 Absolute Nucleated RBC 0.0 Nucleated RBC % 0.0 ESR 6 Sodium 140 Potassium 4.0 Chloride 111
== END 2021-03-03 16:10 | disposition home or self-care (01) | DRG 389 ==
LOC: ANHED 07:03 → ANH3MEDSUR 07:19
PROVIDERS: Internal Medicine Gastroenterology; Admitting Provider Internal Medicine; Emergency Provider General Practice; PCP Internal Medicine Rheumatology; Visit Provider Internal Medicine
PROC: 0DJD8ZZ Inspection of Lower Intestinal Tract, Via Natural or Artificial Opening Endoscopic (ICD-10-PCS; CPT 45378; principal; 2021-03-03 13:45)
DX: K56.600 Partial intestinal obstruction, unspecified as to cause (principal); Q60.0 Renal agenesis, unilateral; K52.9 Noninfective gastroenteritis and colitis, unspecified; K76.0 Fatty (change of) liver, not elsewhere classified; D18.03 Hemangioma of intra-abdominal structures; K64.8 Other hemorrhoids; K57.30 Diverticulosis of large intestine without perforation or abscess without bleeding
CPT/HCPCS: 36415; 74018; 74177; 80053; 81001; 83036; 83690; 83735; 84100; 85025; 85652; 86140; 96361; 96365; 96367; 96375; 99285; A9270; G0378; J0131; J2001; J2270; J2405; J2543; J2704; J7030; J7120; Q9967